=== PATIENT | male | born 1955 | race Caucasian/White ===

== ENCOUNTER → 2021-04-03 | Day surgery (SDC) | payer OTHER | END | disposition home or self-care (01) | LOC: JRADIR 10:10 | PROVIDERS: ATTEND Internal Medicine Endocrinology, Diabetes & Metabolism | PROC: 0G9H3ZX Drainage of Right Thyroid Gland Lobe, Percutaneous Approach, Diagnostic (ICD-10-PCS; principal; 2021-04-03) | DX: E04.1 Nontoxic single thyroid nodule (principal) | CPT/HCPCS: 10005; 76942; 88173; 88305-TC ==

== ENCOUNTER 2023-07-24 13:26 | Inpatient (IN) | payer OTHER ==
[2023-07-24 14:34] VITALS: BMI 22.1
[2023-07-24] MEDS ORDERED: POLYETHYLENE GLYCOL (HEALTHYLAX) 3350 17 GM PACKET PO PRN (15:44)
[2023-07-24] MEDS ORDERED: MAG HYDROX/AL HYDROX/SIMETH 30 ML UNIT-DOSE CUP PO PRN (15:44)
[2023-07-24] MEDS ORDERED: BENZOCAINE/MENTHOL (CHLORASEPTIC ) LOZENGE MM PRN (15:44)
[2023-07-24] MEDS ORDERED: ONDANSETRON *ODT* 4 MG TABLET SL PRN (15:44)
[2023-07-24] MEDS ORDERED: IBUPROFEN 400 MG TABLET (FP) PO PRN (15:44)
[2023-07-24] MEDS ORDERED: NICOTINE POLACRILEX 2 MG GUM BUC PRN (15:44)
[2023-07-24] MEDS ORDERED: BISMUTH SUBSALICYLATE 262 MG/15 ML BTL PO PRN (15:44)
[2023-07-24] MEDS ORDERED: guaiFENesin 600 MG TABLET.ER (FP) PO PRN (15:44)
[2023-07-24] MEDS ORDERED: NICOTINE POLACRILEX 2 MG LOZENGE BC PRN (15:44)
[2023-07-24] MEDS ORDERED: BENZONATATE 200 MG CAPSULE PO PRN (15:44)
[2023-07-24] MEDS ORDERED: P-EPHED 60MG/TRIPROLIDI 2.5MG TABLET PO PRN (15:44)
[2023-07-24] MEDS ORDERED: LOPERAMIDE HCL 2 MG CAPSULE PO PRN (15:44)
[2023-07-24] MEDS ORDERED: chlordiazePOXIDE HCL 25 MG CAPSULE ONE (16:40)
[2023-07-24] MEDS: chlordiazePOXIDE HCL 25 MG CAPSULE PO SCH (16:41)
[2023-07-24] MEDS: THIAMINE HCL 100 MG TABLET (FP) PO SCH (22:01)
[2023-07-24] MEDS: MELATONIN 5 MG TABLETS PO SCH (22:01)
[2023-07-24] MEDS: ALBUTEROL SO4 HFA INHALER IH PRN (22:20)
[2023-07-25] MEDS: ACETAMINOPHEN 325 MG TABLET (FP) PO PRN (05:23)
[2023-07-25] MEDS: BUDESONIDE/FORMETEROL FUMARATE 160/4.5 mcg INHALER IH SCH (10:12)
[2023-07-25] MEDS: amLODIPine BESYLATE 5 MG TABLET (FP) PO SCH (10:13)
[2023-07-25] MEDS: FINASTERIDE 5 MG TABLET (FP) PO SCH (10:13)
[2023-07-25] MEDS: PRENATAL VITAMINS W/ FOLIC ACID TABLET (FP) PO SCH (10:13)
[2023-07-25] MEDS: TIOTROPIUM BROMIDE 2.5 MCG (SPIRIVA) RESPIMAT INHALER IH SCH (10:16)
[2023-07-25] MEDS: ALBUTEROL SO4 2.5/IPRATROPIUM 0.5 INH SOL 3 ML VIAL.NEB. NEB ONE (11:53)
[2023-07-25] MEDS: predniSONE 20 MG TABLET (UD) PO SCH (12:54)
[2023-07-25] MEDS: NICOTINE 14 MG/24 HOURS TOPICAL PATCH TD SCH (12:57)
[2023-07-25 13:13] LABS: HEMATOCRIT 40.9 % (35.4-49); HEMOGLOBIN 13.6 GM/dL (11.7-16.9); MCH 31.5 pg (25.7-33.7); MCHC 33.3 g/dl (32.0-35.9); MEAN CELL VOLUME 94.6 fl (80-96); PLATELET COUNT 336 10^3/uL (134-434); RBC 4.32 M/mm3 (4.00-5.60); RDW 14.2 % (11.9-15.9); WHITE BLOOD COUNT 8.1 K/mm3 (4.0-10.0)
[2023-07-25 13:29] LABS: POTASSIUM 3.8 mmol/L (3.5-5.1)
[2023-07-25 13:34] LABS: CALCIUM 9.2 mg/dL (8.5-10.1)
[2023-07-25 13:35] LABS: ALBUMIN 3.4 g/dl (3.4-5.0)
[2023-07-25 13:40] LABS: BILIRUBIN,TOTAL 0.6 mg/dL (0.2-1); TOT PROT 6.1 g/dl (6.4-8.2)
[2023-07-25 13:44] LABS: BLOOD UREA NITROGEN 12.4 mg/dL (7-18); CREATININE 0.5 mg/dL (0.55-1.3)
[2023-07-25] MEDS ORDERED: OXcarbazepine 300 MG TABLET (UD) PO SCH (22:00)
[2023-07-25] MEDS: OXcarbazepine 300 MG TABLET (UD) PO SCH (22:14)
[2023-07-26] MEDS: chlordiazePOXIDE HCL 25 MG CAPSULE PO SCH (05:31)
[2023-07-26] MEDS: OXcarbazepine 150 MG TABLET (UD) PO SCH (06:19)
[2023-07-26] MEDS ORDERED: OXcarbazepine 300 MG TABLET (UD) PO SCH (07:00)
[2023-07-26] MEDS ORDERED: SERTRALINE HCL 50 MG TABLET (FP) PO SCH (07:00)
[2023-07-26] MEDS: ALBUTEROL SO4 2.5/IPRATROPIUM 0.5 INH SOL 3 ML VIAL.NEB. NEB PRN (07:48)
[2023-07-26] MEDS: SERTRALINE HCL 50 MG TABLET (FP) PO SCH (10:05)
[2023-07-26] MEDS: cloNIDine HCL 0.1 MG TABLET PO PRN (10:09)
[2023-07-26] MEDS: MAGNESIUM HYDROX 2400MG/30ML ORAL SUSPENSION 30 ML CUP PO PRN (10:11)
[2023-07-26] MEDS: chlordiazePOXIDE HCL 25 MG CAPSULE PO PRN (20:11)
[2023-07-27] MEDS: chlordiazePOXIDE HCL 10 MG CAPSULE PO SCH (05:27)
[2023-07-27] MEDS: chlordiazePOXIDE HCL 10 MG CAPSULE PO PRN (15:10)
[2023-07-28] MEDS: chlordiazePOXIDE HCL 10 MG CAPSULE PO SCH (05:22)
[2023-07-29] MEDS: chlordiazePOXIDE HCL 10 MG CAPSULE PO ONE (05:11)
[2023-07-29 06:21] VITALS: BP 136/86; PULSE 79; RESP 18; TEMP 97.7
== END 2023-07-29 08:40 | disposition home or self-care (01) | DRG 897 ==
LOC: YASAS 13:26 → Y6N 17:34
PROVIDERS: ADMIT Allergy & Immunology; ATTEND Surgery
PROC: HZ2ZZZZ Detoxification Services for Substance Abuse Treatment (ICD-10-PCS; principal; 2023-07-24)
DX: F10.230 Alcohol dependence with withdrawal, uncomplicated (principal); F17.210 Nicotine dependence, cigarettes, uncomplicated; F31.9 Bipolar disorder, unspecified; F10.282 Alcohol dependence with alcohol-induced sleep disorder; F10.280 Alcohol dependence with alcohol-induced anxiety disorder; F10.24 Alcohol dependence with alcohol-induced mood disorder; F41.9 Anxiety disorder, unspecified; J44.9 Chronic obstructive pulmonary disease, unspecified; N40.0 Benign prostatic hyperplasia without lower urinary tract symptoms
CPT/HCPCS: 0241U-QW; 36415; 80053; 80305; 82947; 85027; 86780; 87811; 93005; 93010; 94640

== ENCOUNTER 2023-09-29 18:07 | Inpatient (IN) | payer OTHER ==
[2023-09-29 20:16] VITALS: BMI 24.3
[2023-09-29] MEDS ORDERED: BISMUTH SUBSALICYLATE 524 MG/30 ML PO PRN (22:33)
[2023-09-29] MEDS ORDERED: NALOXONE HCL 0.4 MG/ML VIAL IM PRN (22:33)
[2023-09-29] MEDS ORDERED: IBUPROFEN 400 MG TABLET (FP) PO PRN (22:33)
[2023-09-29] MEDS ORDERED: MAG HYDROX/AL HYDROX/SIMETH 30 ML UNIT-DOSE CUP PO PRN (22:33)
[2023-09-29] MEDS ORDERED: BENZOCAINE/MENTHOL (CHLORASEPTIC ) LOZENGE MM PRN (22:33)
[2023-09-29] MEDS ORDERED: NALOXONE HCL (KLOXXADO) 8 MG SPRAY NS PRN (22:33)
[2023-09-29] MEDS ORDERED: LOPERAMIDE HCL 2 MG CAPSULE PO PRN (22:33)
[2023-09-29] MEDS ORDERED: ONDANSETRON *ODT* 4 MG TABLET SL PRN (22:33)
[2023-09-30] MEDS: chlordiazePOXIDE HCL 25 MG CAPSULE PO SCH (00:03)
[2023-09-30] MEDS ORDERED: chlordiazePOXIDE HCL 25 MG CAPSULE ONE (00:28)
[2023-09-30] MEDS: ALBUTEROL SO4 HFA INHALER IH PRN (09:06)
[2023-09-30] MEDS: PRENATAL VITAMINS W/ FOLIC ACID TABLET (FP) PO SCH (10:06)
[2023-09-30] MEDS: BUDESONIDE/FORMETEROL FUMARATE 160/4.5 mcg INHALER IH SCH (10:07)
[2023-09-30] MEDS: amLODIPine BESYLATE 5 MG TABLET (FP) PO SCH (10:09)
[2023-09-30] MEDS: NICOTINE 21 MG/24 HOURS TOPICAL PATCH TD SCH (10:09)
[2023-09-30] MEDS: TIOTROPIUM BROMIDE 2.5 MCG (SPIRIVA) RESPIMAT INHALER IH SCH (10:12)
[2023-09-30] MEDS: FINASTERIDE 5 MG TABLET (FP) PO SCH (10:56)
[2023-09-30] MEDS: guaiFENesin 600 MG TABLET.ER (FP) PO PRN (10:59)
[2023-09-30] MEDS: BENZONATATE 200 MG CAPSULE PO PRN (11:03)
[2023-09-30 12:12] LABS: HEMATOCRIT 40.9 % (35.4-49); MCH 30.8 pg (25.7-33.7); MCHC 34.2 g/dl (32.0-35.9); MEAN CELL VOLUME 90.1 fl (80-96); MEAN PLT VOLUME 9.1 fl (7.5-11.1); PLATELET COUNT 241 10^3/uL (134-434); RBC 4.55 M/mm3 (4.00-5.60); WHITE BLOOD COUNT 5.8 K/mm3 (4.0-10.0)
[2023-09-30] MEDS: chlordiazePOXIDE HCL 25 MG CAPSULE PO PRN (12:44)
[2023-09-30 12:58] LABS: CHLORIDE 103 mmol/L (98-107); POTASSIUM 3.5 mmol/L (3.5-5.1); SODIUM 139 mmol/L (136-145)
[2023-09-30 13:02] LABS: ALBUMIN 3.4 g/dl (3.4-5.0); ANION GAP 6 mmol/L (4-13); BLOOD UREA NITROGEN 13.8 mg/dL (7-18); CALCIUM 9.2 mg/dL (8.5-10.1); CO2 30 mmol/L (21-32); GLUCOSE,RANDOM 124 mg/dL (74-106)
[2023-09-30 13:05] LABS: CREATININE 0.6 mg/dL (0.55-1.3); SGOT/AST 44 U/L (15-37); SGPT/ALT 53 U/L (13-61)
[2023-09-30 13:06] LABS: BILIRUBIN,TOTAL 1.6 mg/dL (0.2-1)
[2023-09-30 13:07] LABS: ALK PHOS 88 U/L (45-117); TOT PROT 6.1 g/dl (6.4-8.2)
[2023-09-30] MEDS: ACETAMINOPHEN 325 MG TABLET (FP) PO PRN (17:10)
[2023-09-30] MEDS: METHOCARBAMOL 500 MG TABLET PO PRN (17:51)
[2023-09-30] MEDS: MAGNESIUM HYDROX 2400MG/30ML ORAL SUSPENSION 30 ML CUP PO PRN (21:06)
[2023-09-30] MEDS: MELATONIN 5 MG TABLETS PO SCH (22:10)
[2023-09-30] MEDS: THIAMINE 100 MG TABLET PO SCH (22:10)
[2023-09-30] MEDS: OXcarbazepine 150 MG TABLET (UD) PO SCH (23:35)
[2023-10-01] MEDS: chlordiazePOXIDE HCL 25 MG CAPSULE PO SCH (05:20)
[2023-10-01] MEDS: ALBUTEROL SO4 2.5/IPRATROPIUM 0.5 INH SOL 3 ML VIAL.NEB. NEB SCH (10:00)
[2023-10-01] MEDS: FLUTICASONE PROP 0.05% 16 GM NASAL SPRAY NS SCH (11:02)
[2023-10-02] MEDS: chlordiazePOXIDE HCL 10 MG CAPSULE PO PRN (02:48)
[2023-10-02] MEDS: chlordiazePOXIDE HCL 10 MG CAPSULE PO SCH (06:06)
[2023-10-02] MEDS: ALBUTEROL SO4 0.083% IH SOL 2.5 MG/3 ML VIAL.NEB. NEB PRN (13:05)
[2023-10-02] MEDS: IBUPROFEN 600 MG TABLET (FP) PO PRN (13:50)
[2023-10-02] MEDS: amLODIPine BESYLATE 5 MG TABLET (FP) PO ONE (22:23)
[2023-10-03] MEDS: POLYETHYLENE GLYCOL (HEALTHYLAX) 3350 17 GM PACKET PO PRN (05:00)
[2023-10-03] MEDS: chlordiazePOXIDE HCL 10 MG CAPSULE PO SCH (06:14)
[2023-10-03] MEDS: SERTRALINE HCL 50 MG TABLET (FP) PO SCH (10:13)
[2023-10-03 13:13] VITALS: RESP 16
[2023-10-03] MEDS: hydrOXYzine PAMOATE 25 MG CAPSULE (FP) PO PRN (21:41)
[2023-10-04] MEDS: chlordiazePOXIDE HCL 10 MG CAPSULE PO ONE (05:31)
[2023-10-04 06:11] VITALS: BP 142/84; PULSE 68; TEMP 97.7
== END 2023-10-04 08:48 | disposition home or self-care (01) | DRG 897 ==
LOC: YASAS 18:07 → Y3N 23:51
PROVIDERS: ADMIT Allergy & Immunology; ATTEND Surgery
PROC: HZ2ZZZZ Detoxification Services for Substance Abuse Treatment (ICD-10-PCS; principal; 2023-09-29)
DX: F10.230 Alcohol dependence with withdrawal, uncomplicated (principal); F31.9 Bipolar disorder, unspecified; F41.9 Anxiety disorder, unspecified; I10 Essential (primary) hypertension; J44.9 Chronic obstructive pulmonary disease, unspecified; N40.0 Benign prostatic hyperplasia without lower urinary tract symptoms
CPT/HCPCS: 36415; 71045-TC-FY; 80053; 80305; 80307; 85027; 86780; 93005; 93010; 94640